=== PATIENT | male | born 1955 | race Caucasian/White ===

== ENCOUNTER 2021-06-05 04:21 | Emergency (ER) | payer MEDICAID ==
[~2021-06-05] VITALS: Ht 180.3 cm; Wt 91.0 kg
[2021-06-05 06:26] LABS: CHLORIDE 104 mEq/L (98-107)
[2021-06-05 08:53] LABS: CLARITY URINE HAZY (CLEAR); COLOR URINE YELLOW (YELLOW)
[2021-06-05 08:54] LABS: KETONES URINE NEGATIVE (NEGATIVE); PH URINE 7.5 (4.5-8.0); PROTEIN URINE 3+ (NEGATIVE); SPECIFIC GRAVITY URINE 1.011 (1.005-1.030)
[2021-06-05 08:55] LABS: LEUKOCYTE ESTERASE URINE NEGATIVE (NEGATIVE); NITRITE URINE NEGATIVE (NEGATIVE); OCCULT BLOOD URINE 2+ (NEGATIVE); UROBILINOGEN URINE 0.2 E.U./dL (0.2-1.0)
[2021-06-05 14:14] VITALS: BP 221/93
== END 2021-06-05 14:16 | disposition home or self-care (01) ==
LOC: ER 04:21
DX: R33.9 Retention of urine, unspecified (principal); I10 Essential (primary) hypertension; E11.9 Type 2 diabetes mellitus without complications; Z86.73 Personal history of transient ischemic attack (TIA), and cerebral infarction without residual deficits
CPT/HCPCS: 36415; 51702; 80048; 81003; 93970; 99284; Z7610